=== PATIENT | female | born 1990 | race Caucasian/White ===

== ENCOUNTER 2016-09-20 19:48 | Inpatient (IN) | payer OTHER ==
[~2016-09-20] VITALS: Ht 160 cm; Wt 54.4 kg
[2016-09-22] MEDS ORDERED: DIAZEPAM 5 MG TABLET PO PRN (15:30)
[2016-09-22] MEDS ORDERED: DICYCLOMINE HCL 20 MG TABLET PO PRN (15:30)
[2016-09-22] MEDS ORDERED: ONDANSETRON 4 MG/2 ML VIAL IM PRN (15:30)
[2016-09-22] MEDS ORDERED: MIRALAX 17 GM POWD.PACK PO PRN (15:30)
[2016-09-22] MEDS ORDERED: MAGNESIUM HYDROXIDE 30 ML LIQUID UDC PO PRN (15:30)
[2016-09-22] MEDS ORDERED: diphenhydrAMINE 50 MG CAPSULE PO PRN (15:30)
[2016-09-22] MEDS ORDERED: MAG HYDROX/AL HYDROX/SIMETH 30 ML LIQUID UDC PO PRN (15:30)
[2016-09-22] MEDS ORDERED: THIAMINE HCL 200 MG/2 ML VIAL IM ONE ×2 (15:30→18:15)
[2016-09-22] MEDS ORDERED: ONDANSETRON ODT 4 MG TAB.RAPDIS SL PRN (15:30)
[2016-09-22] MEDS ORDERED: CLONIDINE HCL 0.1 MG TABLET PO PRN (15:30)
[2016-09-22] MEDS ORDERED: ACETAMINOPHEN 325 MG TABLET PO PRN (15:30)
[2016-09-22] MEDS ORDERED: LORAZEPAM 2 MG/1 ML VIAL IM PRN (15:30)
[2016-09-22] MEDS ORDERED: LOPERAMIDE HCL 2 MG CAPSULE PO PRN ×2 (15:30)
[2016-09-22] MEDS ORDERED: IBUPROFEN 600 MG TABLET PO PRN (15:30)
[2016-09-22] MEDS ORDERED: DIAZEPAM 10 MG TABLET PO PRN ×2 (15:30)
[2016-09-22] MEDS ORDERED: DEXTROSE 50% 50 ML DISP.SYRIN IV PRN (15:45)
[2016-09-22] MEDS ORDERED: INSULIN REGULAR, HUMAN 300 UNIT/3 ML VIAL SQ PRN (15:45)
[2016-09-22 16:04] VITALS: BP 129/66
--- NOTE | 2016-09-22 16:05 | NUR ---
INTAKE ASSESSMENT Received patient Aox4, stable, and ambulatory. Vital signs stable. patient reports NKA or no seizure history. Explained med handling and disposal of narcotics. Patient noted to be mildly intoxicated. Explained unit protocols and policies and patient verbalizes understanding. Will admit patient upon arrival to third floor.
--- NOTE | 2016-09-22 16:06 | NUR ---
ADMISSION NOTE Vital signs: BP 129/66 HR 107 TEMP 98.7 RR 17 O2 97% WEIGHT 120 LBS HEIGHT 5'3 PAIN 10/10 GENERALIZED ACHES NKA Patient is a 26 year old female admitted to [facility] on 09/22/16 at 1526 for opiate and benzo dependence. Patient reports occasional crack use about 1 time a week if that. Patient also reports occasional marijuana usage. Patient is placed under the care of Dr. Purcell. Patient denies suicidal or homicidal ideations at this time. Patient denies being hospitalized within the last 30 days. Patient denies chest pain or SOB. Patient reports history of Type 1 Diabetes, anxiety, and depression. Patient states managing her diabetes with Insulin Lantus. Upon assessment, patient has multiple abscesses to right hand and left arm. COWS 8 CIWA 11. NKA. AOX4 and able to answer necessary questions for admission. Patient is full code, regular diet. Patient denies seizure history. Patient denies having a PCP. Breathing is even and unlabored. Patient ambulates with steady gait. Patient reports multiple treatment history "too many to count." Patient reports living with friends. Patient smokes [address] Purcell has been notified and assessed patient and placed under observation. All needs have been met. Safety measures in place. Bed locked and in lowest position, call light within reach. Will monitor closely. SUBSTANCE ABUSE Heroin 3 g IV daily for 1 year at this rate, last used 2 gram 09/21/16 Benzos (Xanax or Klonopin) 8 mg daily for 7 years at this rate, last used 09/21/16 8 mg Crack (occasionally) 1 gram once a week, last used 09/19/16 1 gram Addendum: 09/22/16 at 1635 by JER ALEMAN RN photos of wounds taken and placed in chart
[2016-09-22] MEDS ORDERED: INSU100V7 SQ (16:35)
[2016-09-22] MEDS ORDERED: INSU100V28 (16:35)
[2016-09-22] MEDS ORDERED: IBUP-1957 PO (16:35)
[2016-09-22] MEDS ORDERED: QUET50TA PO (16:35)
[2016-09-22] MEDS ORDERED: INSU100C (16:35)
[2016-09-22] MEDS ORDERED: DICL500C PO (16:35)
[2016-09-22] MEDS ORDERED: IBUP-1955 PO (16:35)
[2016-09-22] MEDS ORDERED: BACL10TA PO (16:35)
[2016-09-22] MEDS ORDERED: LIDO10VI IJ (16:35)
[2016-09-22] MEDS ORDERED: SULF1TAB48 PO (16:35)
[2016-09-22] MEDS ORDERED: TRAZ-144 PO (16:35)
[2016-09-22] MEDS ORDERED: BUPR-51 PO (16:35)
[2016-09-22] MEDS: BLOOD SUGAR DIAGNOSTIC 1 EACH STRIP VI SCH ×2 (16:50→20:36)
[2016-09-22 17:46] LABS: *URINE HCG, QUAL NEGATIVE (NEGATIVE)
[2016-09-22 17:53] LABS: *AMPHETAMINE, URINE NEGATIVE (NEGATIVE); *BARBITURATE, URINE NEGATIVE (NEGATIVE); *CANNABINOID, URINE NEGATIVE (NEGATIVE); *COCCAINE, URINE POSITIVE (NEGATIVE); *OPIATE, URINE POSITIVE (NEGATIVE); *PHENCYCLIDINE SCREEN,URINE NEGATIVE (NEGATIVE)
--- NOTE | 2016-09-22 18:23 | NUR ---
END OF SHIFT NOTE Admitted patient this afternoon for opiate and benzo dependence. COWS 8 CIWA 11 upon admission. Patient sleeping with RR even and unlabored since admitting patient. Patient refused blood draw per lab. Patient refused Thiamine injection and reports wanting to just sleep since she has been lacking sleep lately. No medications administered. Blood sugar 100 upon admission. Patient ate some snacks during admission process. Patient presented labile, anxious, and fatigued. Vitals stable. Bed locked and in lowest position with call lugo within reach. Will endorse to night nurse.
--- NOTE | 2016-09-22 19:42 | NUR ---
MD COMMUNICATION Notified Dr. Purcell if he would like to add a parameter for Levemir, per MD order to hold Levemir if BG is less than 100 mg/dl. Nurse is made aware. Addendum: 09/22/16 at 1948 by MILENA LOPES RN Levemir order is 30 units HS, to hold if blood glucose is <100.
[2016-09-22 20:00] VITALS: BP 126/79
--- NOTE | 2016-09-22 20:00 | NUR ---
Start of Shift Pt is a 26 year old female admitted for Opiate/Benzo dependence. PMH: DM I, depression and anxiety. NKA, regular diet, fall/seizure precautions and full code. Upon assessment, pt is in bed sleeping. Pt presents with agitation, irritation - pt reports wanting to sleep and to be "left alone". Safety measures in place, will continue to monitor.
--- NOTE | 2016-09-22 20:36 | NUR ---
Accu-Chek - BS 176 Administered Levemir 30units as ordered with an additional Humulin R 3 units per sliding scale orders. Safety measures in place, will continue to monitor.
[2016-09-22] MEDS: INSULIN DETEMIR 300 UNIT/3 ML CARTRIDGE SQ SCH (20:44)
[2016-09-22] MEDS: INSULIN REGULAR, HUMAN 300 UNITS/3 ML VIAL SQ PRN (20:46)
--- NOTE | 2016-09-22 20:55 | NUR ---
Behavioral Patient refused blood draw. While explaining risk/benefits, pt is agitated, and states, "leave me alone, I don't want this!" Safety precautions in place, will continue to monitor.
[2016-09-22] MEDS ORDERED: INSULIN GLARGINE,HUM 300 UNITS/3 ML CARTRIDGE SQ SCH (21:00)
[2016-09-22] MEDS: CLINDAMYCIN HCL 300 MG CAPSULE PO SCH (21:23)
[2016-09-23] VITALS: BP 110/86
[2016-09-23] MEDS: KETOROLAC TROMETHAMINE 30 MG INJ IM PRN ×2 (00:49→10:41)
[2016-09-23] MEDS ORDERED: KETOROLAC TROMETHAMINE 30 MG INJ ONE (00:53)
--- NOTE | 2016-09-23 00:54 | NUR ---
PRN Administration Pt reports generalized body pain 10/10 and reports difficulty falling asleep. Toradol inj 30mg/ml PRN administered along with Trazodone 50mg PRN administered. Safety measures in place. Will continue to monitor.
[2016-09-23] MEDS ORDERED: TRAZODONE 50 MG TABLET PO PRN (01:00)
[2016-09-23] MEDS ORDERED: TRAZODONE 50 MG TABLET ONE (01:05)
--- NOTE | 2016-09-23 01:54 | NUR ---
PRN Reassessment Pt is sleeping, respirations even/unlabored. Safety measures in place, will continue to monitor.
[2016-09-23 04:00] VITALS: BP 104/58
--- NOTE | 2016-09-23 04:00 | NUR ---
Vital Signs BP 104/58, pulse 72, resp 16, SpO2 96%, temp 97.9, no pain 0/10 CIWA/COWS deferred to assess while pt is awake as ordered. Safety measures in place, will continue to monitor.
[2016-09-23] MEDS: CLINDAMYCIN HCL 300 MG CAPSULE PO SCH ×3 (06:51→22:00)
--- NOTE | 2016-09-23 07:00 | NUR ---
End of Shift Pt is a 26 year old female admitted for Opiate/Benzo dependence. PMH: DM I, depression and anxiety. NKA, regular diet, fall/seizure precautions and full code. During shift, pt presented with agitation, irritation - pt reports wanting to sleep and to be "left alone". Accu-Chek - BS 176 - Administered Levemir 30units as ordered with an additional Humulin R 3 units per sliding scale orders. Pt continues blood draw. While explaining risk/benefits, pt is agitated, yelling and states, "leave me alone!" Toradol inj 30mg/ml PRN administered along with Trazodone 50mg PRN for generalized body pain / and reports of difficulty falling asleep, effective. Pt slept for 4 hours, intake of 1032 ML PO, voids x4 and stool x1. Safety measures in place, call light within reach, side rails up x2, bed locked and in low position. Endorsed to day shift nurse.
--- NOTE | 2016-09-23 07:30 | NUR ---
START OF SHIFT Rcvd endorsement form ongoing nurse, client is in bed, she sound asleep, RR 14 even, non-labored. Client is a 26 year old female admitted for Opiate/Benzodiazepine withdrawal. NKA, regular diet, fall/seizure precautions and full code. Last Accu-Chek - BS 176 - Levemir 30units administered, sliding scale coverage Humulin R 3 units. No blood draw yet due to non-compliance. Toradol inj 30mg/ml PRN administered along with Trazodone 50mg PRN for generalized body pain 10/10 and reports of difficulty falling asleep, effective, she slept 4 hrs. Safety measures in place, call light within reach, side rails x 2 up/padded, bed locked and in lowest position.
[2016-09-23 08:30] VITALS: BP 108/69
[2016-09-23] MEDS: FOLIC ACID 1 MG TABLET PO SCH (08:34)
[2016-09-23] MEDS: DOCUSATE SODIUM 250 MG CAPSULE PO SCH (08:34)
[2016-09-23] MEDS: THIAMINE HCL 100 MG TABLET PO SCH (08:34)
[2016-09-23] MEDS: MULTIVITAMINS,THERAPEUTIC TABLET PO SCH (08:34)
[2016-09-23] MEDS: PHENOBARBITAL 60 MG TABLET PO SCH ×4 (08:34→21:00)
[2016-09-23] MEDS: BLOOD SUGAR DIAGNOSTIC 1 EACH STRIP VI SCH ×4 (08:40→21:36)
[2016-09-23] MEDS ORDERED: DIAZEPAM 5 MG TABLET PO PRN (08:45)
[2016-09-23] MEDS ORDERED: DIAZEPAM 10 MG TABLET PO PRN ×2 (08:45)
[2016-09-23] MEDS ORDERED: GABAPENTIN 300 MG CAPSULE PO SCH ×3 (09:00→21:00)
[2016-09-23] MEDS ORDERED: TUBERCULIN,PURIF.PROT.DERIV. 5 TU/0.1 ML TEST ID ONE (09:00)
--- NOTE | 2016-09-23 10:41 | NUR ---
PRN Toradol 30mg Inj. Client reports generalized pain 01/10, she stated "I'm in pain, is very achy, I am an addict, detox is very hard for me." PRN toradol 30mg Inj administered to R deltoid, client cried in pain because of the injection, she stated "Next time, I will rather just get Ativan every 1 or 2 hrs for pain." Educate client that Ativan medication is not given for pain, reinforcement needed.
--- NOTE | 2016-09-23 11:11 | NUR ---
Reassessment PRN Toradol 30mg Inj. Client is in bed, she sound asleep, RR 16, even, non-labored. Call light within reach. Will continue to monitor.
--- NOTE | 2016-09-23 11:56 | NUR ---
PRN Humulin R 12 Units per sliding scale BS 343. Client is not compliant with ordered diet, bottle of open juice at bedside, she added 5 packets of splenda to her coffee. Educate client on risk/benefits of eating habits, she stated "This blood sugar check is nothing, sometimes I get over 800." Reinforcement needed. Call light within reach.
[2016-09-23 12:22] VITALS: BP 119/80
[2016-09-23] MEDS ORDERED: BUPRENORPHINE HCL 2 MG TAB.SUBL SL PRN (12:45)
[2016-09-23] MEDS: BUPRENORPHINE HCL 2 MG TAB.SUBL SL SCH ×3 (12:58→21:00)
[2016-09-23] MEDS ORDERED: TETR-62 OP (13:40)
[2016-09-23] MEDS ORDERED: MUPI22OI2 TP (13:40)
[2016-09-23] MEDS: ACETAMINOPHEN ES 500 MG TABLET PO SCH ×2 (14:11→21:00)
[2016-09-23] MEDS: GABAPENTIN 300 MG CAPSULE PO SCH (14:11)
[2016-09-23] MEDS: LIDOCAINE 5% PATCH TD SCH (14:59)
[2016-09-23 15:30] LABS: BASOPHILS # (AUTO) 0.1 K/uL (0.0-8.0); BASOPHILS % (AUTO) 0.7 % (0.0-2.0); EOSINOPHILS # (AUTO) 0.2 K/uL (0.0-0.7); EOSINOPHILS % (AUTO) 1.4 % (0.0-7.0); HEMATOCRIT 40.1 % (37-47); HEMOGLOBIN 13.2 G/DL (12.0-16.0); LYMPHOCYTES # (AUTO) 2.8 K/UL (0.8-4.8); MEAN CORPUSCULAR HEMOGLOBIN 27.8 UUG (27.0-31.0); MEAN CORPUSCULAR HGB CONC 33 g/dL (32.0-37.0); MEAN CORPUSCULAR VOLUME 84.5 FL (81.0-99.0); MONOCYTES # (AUTO) 0.7 K/UL (0.1-1.30); MONOCYTES % (AUTO) 6.3 % (0.0-11.0); NEUTROPHILS # (AUTO) 7.6 K/UL (1.8-8.9); NEUTROPHILS % (AUTO) 66.6 % (38.5-71.5); PLATELET COUNT (AUTO) 288 K/UL (150-450); RED BLOOD CELL COUNT(AUTO) 4.74 MIL/UL (4.2-5.4); WHITE BLOOD COUNT (AUTO) 11.4 K/UL (4.0-11.2)
[2016-09-23 15:59] LABS: BILIRUBIN,TOTAL 0.5 mg/dL (0.2-1.0); CREATININE 0.9 mg/dL (0.6-1.3); MAGNESIUM 2.1 mg/dL (1.8-2.4); POTASSIUM 4.8 mmol/L (3.5-5.1); THYROID STIMULATING HORMONE 0.186 mIU/mL (0.358-3.740); TOTAL PROTEIN, SERUM 7.6 g/dL (6.4-8.2)
[2016-09-23 16:00] VITALS: BP 111/84
[2016-09-23 16:33] LABS: BASOPHILS % (MANUAL) 0 % (0-2); EOSINOPHILS % (MANUAL) 0 % (0-8); LYMPHOCYTES % (MANUAL) 16 % (20-40); MONOCYTES % (MANUAL) 8 % (2-10); NEUTROPHILS % (MANUAL) 66 % (42-75)
[2016-09-23] MEDS ORDERED: KETOROLAC TROMETHAMINE 30 MG INJ IVP PRN (17:30)
[2016-09-23] MEDS ORDERED: QUETIAPINE FUMARATE 25 MG TABLET PO SCH ×2 (18:00→21:00)
[2016-09-23] MEDS ORDERED: TRAZODONE 50 MG TABLET PO SCH (18:00)
--- NOTE | 2016-09-23 18:22 | NUR ---
REFUSING I&D Pt was assessed by nurse practitioner, Dr. Marino was contacted to come and do I&D, primary nurse reports client does not consent for treatment at this time. Pt education provided.
--- NOTE | 2016-09-23 19:00 | NUR ---
Client stated, "If you don't give me Ativan every hr or every two hrs for pain, I will leave AMA and kill myself." Primary educate client that Ativan is not for pain, she needs reinforcement. After talking with a client, she denied any SI/HI. Charge nurse and Dr. Purcell and Dr. Mcpherson made aware. Client is in room, watching TV. Call light within reach.
--- NOTE | 2016-09-23 19:15 | NUR ---
Start of Shift Note: Patient is a 26 y/o female admitted on 09/22/16 for Opiate and Benzo dependence. Patient has medical history of Diabetes Type I, Anxiety & Depression. Patient is on a regular diet with no known food and drug allergies. Full Code status. Patient is started on a 6-day Phenobarbital taper and 5-day Subutex taper. Last COWS 4 CIWA 6. Pt was given PRN Toradol during day shift. Pt noted with a blood sugar of 343mg/dl @ 3pm d/t non-compliance with her diet. Pt is in bed with eyes close. Patient is asleep but arousable to touch. Patient refuses to be assessed. Patient lying in bed with no s/s of distress. No shortness of breath noted. No episode of vomiting noted. Skin warm and dry to touch. No facial grimacing noted. No sweating or tremors noted. Patient kept comfortable. Vitals WNL. Safety precautions are in place. Bed locked in lowest position. Both side rails up. Call light within pt's reach. Will continue to closely monitor patient.
--- NOTE | 2016-09-23 19:28 | NUR ---
CRISIS TEAM NOTIFIED Pt made a comment to primary nurse earlier and stated "If you don't give me Ativan every hr or every two hrs for pain, I will leave AMA and kill myself." Primary nurse explained to patient that Ativan is for anxiety and not for pain. Primary nurse asked the patient if she has thoughts of hurting herself or anyone else, pt denies SI/HI. Medical MD and psychiatrist aware of comment and stated to notify crisis team. Nina (crisis team laminate floor installer) notified of client's comment, pt is asleep at this time. Nina stated to notify her if pt wakes up and wants to leave AMA.
--- NOTE | 2016-09-23 19:30 | NUR ---
END OF SHIFT Client is in bed, watching TV. Phenobarbital/Subutex taper effective in alleviating withdrawal sx such as generalized body aches, stomach cramps, restless legs, Safety measures rendered, she denies SI/HI. Call light within reach. All needs met.
[2016-09-23 20:00] VITALS: BP 105/74
--- NOTE | 2016-09-23 21:00 | NUR ---
Patient's scheduled medication at 2100 was held due to sedation. Patient shows no s/s of distress. No shortness of breath noted. Vitals WNL. Charge Nurse made aware. Will continue to closely monitor patient.
[2016-09-23] MEDS: INSULIN REGULAR, HUMAN 300 UNITS/3 ML VIAL SQ PRN (21:39)
[2016-09-23] MEDS: INSULIN DETEMIR 300 UNIT/3 ML CARTRIDGE SQ SCH (21:40)
--- NOTE | 2016-09-24 | NUR ---
Vitals/Cows/Ciwa deferred Patient refused vitals at this time. Unable to assess COWS & CIWA. Patient asleep in bed with no s/s of distress. No shortness of breath noted. Respiration even & unlabored. Safety precautions are in place. Will continue to monitor patient.
[2016-09-24 04:00] VITALS: BP 121/82
[2016-09-24] MEDS: CLINDAMYCIN HCL 300 MG CAPSULE PO SCH ×2 (06:25→14:00)
[2016-09-24 06:42] VITALS: BP 116/81
--- NOTE | 2016-09-24 06:45 | NUR ---
Blood Eifli=905es/dl per patient's request.
--- NOTE | 2016-09-24 07:36 | NUR ---
End of Shift Note: Patient is a 26 y/o female admitted on 09/22/16 for Opiate and Benzo dependence. Patient has medical history of Diabetes Type I, Anxiety & Depression. Patient is on a regular diet with no known food and drug allergies. Full Code status. Patient is started on a 6-day Phenobarbital taper and 5-day Subutex taper. Patient's medications at 2100 were held d/t sedation. Patient has been sleeping most of the night. No PRN medications were given during my shift. Last COWS 7 CIWA 8. Patient remained stable and Vitals remains WNL. Patient was able to sleep for a total of 10 hours. Pt consumed 1985ml of fluids. Voided 4x with no bowel movement. All needs attended & met. Safety precautions are in place. Will endorse pt to day shift nurse.
[2016-09-24 08:00] VITALS: BP 115/72
[2016-09-24] MEDS: BLOOD SUGAR DIAGNOSTIC 1 EACH STRIP VI SCH ×4 (08:12→20:14)
--- NOTE | 2016-09-24 08:13 | NUR ---
START OF SHIFT: RECEIVED PT A/O X 4. SHE PRESENTS WITH IRRITABLE MOOD AND CONGRUENT AFFECT. SHE IS TEARFUL AT TIMES DURING ASSESSMENT. SHE C/O BODY ACHES,CHILLS,SWEATS,IRRITABILITY AND ANXIETY. SHE BECOMES EASILY AGITATED. OFFERED SUPPORT. COWS 10 CIWA 6. PHENOBARB/SUBUTEX TAPER IN PROGRESS. ENCOURAGED INCREASED FLUIDS TO ASSIST IN FACILITATING DETOX PROCESS. WILL CONTINUE TO MONITOR AND OFFER SUPPORT. Addendum: 09/24/16 at 1755 by MARY ZULUAGA RN PRN CLONIDINE AND PRN BENTYL GIVEN FOR S/S OF W/D.
[2016-09-24] MEDS: BUPRENORPHINE HCL 2 MG TAB.SUBL SL SCH ×3 (08:33→15:00)
[2016-09-24] MEDS: PHENOBARBITAL 60 MG TABLET PO SCH ×2 (08:34→15:00)
[2016-09-24] MEDS: DOCUSATE SODIUM 250 MG CAPSULE PO SCH (08:34)
[2016-09-24] MEDS: GABAPENTIN 300 MG CAPSULE PO SCH ×2 (08:34→15:00)
[2016-09-24] MEDS: MULTIVITAMINS,THERAPEUTIC TABLET PO SCH (08:35)
[2016-09-24] MEDS: THIAMINE HCL 100 MG TABLET PO SCH (08:35)
[2016-09-24] MEDS: ACETAMINOPHEN ES 500 MG TABLET PO SCH ×2 (08:35→15:00)
[2016-09-24] MEDS: FOLIC ACID 1 MG TABLET PO SCH (08:35)
[2016-09-24] MEDS: LIDOCAINE 5% PATCH TD SCH (08:38)
--- NOTE | 2016-09-24 09:15 | NUR ---
PT STATES THE PRN MEDS WERE EFFECTIVE. PT THREATENS TO LEAVE AMA IF SHE DOES NOT GET HER MAKE UP. OFFERED SUPPORT AND INVOLVED INTERDISCIPLINARY TEAM.
[2016-09-24 12:00] VITALS: BP 157/92
[2016-09-24 14:11] LABS: HEPATITIS B SURFACE AG Negative (Negative)
[2016-09-24 16:00] VITALS: BP 90/60
--- NOTE | 2016-09-24 17:00 | NUR ---
1600 CIWA AND COWS DEFERRED. PT IS ASLEEP.
--- NOTE | 2016-09-24 17:21 | NUR ---
1630 ACCU CHECK REFUSED. PT YELLED LEAVE ME ALONE. ALLOWING PT TO REST.
--- NOTE | 2016-09-24 19:15 | NUR ---
START OF SHIFT Received 26 year old female patient admitted on 09/22/16 for Opiate and Benzodiazepine dependency. Pt is full code with NKA. She reports a PMHx of diabetes type 1, depression and anxiety. She reports using heroin 3 gram IV daily for 5 years. Last dose 2 grams on 09/21/16. Xanax/Klonopin 8 mg PO daily for 13 years. Last dose was 8 mg on 09/21/16. And crack occasionally. Last dose was 1 gram on 09/19/16. Pt placed on 6 day Phenobarbital and 5 day Subutex taper. Per endorsement, pt noted with multiple track nieves to bilateral arms. And Abscess x2 on left upper arm and right hand. Per endorsement, pt refused Accucheck. Pt is alert and oriented x4, breathing is even and unlabored. Safety measures in place. Will continue to monitor.
--- NOTE | 2016-09-24 19:27 | NUR ---
END OF SHIFT: PT CONTINUES O PHENOBARBITAL/SUBUTEX TAPER. SHE C/O SWEATS,CHILLS,BOY ACHES,ANXIETY AND RESTLESSNESS EARLY IN SHIFT. PRN CLONIDINE AND BETYL GIVEN AND EFFECTIVE. SHE THREATENS TO AMA WHEN SHE DOESN'T GET HER WAY. LAST BS 106 BEFORE LUNCH. SHE REFUSED ACCU CHECK AND DINNER AND SLEPT THROUGH AFTERNOON MEDS . OFFERED SUPPORT. WILL PASS SHIFT REPORT TO ONCOMING NIGHT NURSE.
[2016-09-24] MEDS: INSULIN REGULAR, HUMAN 300 UNITS/3 ML VIAL SQ PRN (20:08)
[2016-09-24] MEDS: INSULIN DETEMIR 300 UNIT/3 ML CARTRIDGE SQ SCH (20:10)
--- NOTE | 2016-09-24 20:15 | NUR ---
YOGI BS:242. Pt received 4 units of Humulin per sliding scale. Will monitor.
--- NOTE | 2016-09-24 21:25 | NUR ---
AMA NOTE Pt stated that she wanted to leave AMA d/t pt did not want to continue the treatment. Pt educated about the risks and consequences of leaving AMA, pt verbalized understanding but still requested to leave. Multiple staff members spoke with pt without any success. Pt refused VS. Pt denies any suicidal/homicidal ideations, skin intact, Dr. Purcell notified. Pt was given a list of community resources in case she is in need of help. All belongings returned to pt. Pt left the facility on 09/24/16 at 2125.
[2016-09-25] MEDS ORDERED: PHENOBARBITAL 60 MG TABLET PO SCH (09:00)
[2016-09-25] MEDS ORDERED: BUPRENORPHINE HCL 2 MG TAB.SUBL SL SCH ×2 (09:00→15:00)
[2016-09-26] MEDS ORDERED: PHENOBARBITAL 60 MG TABLET PO SCH (09:00)
[2016-09-26] MEDS ORDERED: BUPRENORPHINE HCL 2 MG TAB.SUBL SL SCH (09:00)
[2016-09-27] MEDS ORDERED: PHENOBARBITAL 60 MG TABLET PO SCH (09:00)
[2016-09-27] MEDS ORDERED: BUPRENORPHINE HCL 2 MG TAB.SUBL SL SCH (09:00)
[2016-09-28] MEDS ORDERED: PHENOBARBITAL 60 MG TABLET PO SCH (09:00)
== END 2016-09-24 21:25 | disposition left against medical advice (07) | DRG 894 ==
LOC: SRC 09-22 14:01
PROVIDERS: ADMIT Internal Medicine; ATTEND Internal Medicine
PROC: HZ2ZZZZ Detoxification Services for Substance Abuse Treatment (ICD-10-PCS; principal; 2016-09-22)
PROC: HZ31ZZZ Individual Counseling for Substance Abuse Treatment, Behavioral (ICD-10-PCS; 2016-09-24)
DX: F11.23 Opioid dependence with withdrawal (principal); L03.114 Cellulitis of left upper limb; L03.113 Cellulitis of right upper limb; L02.413 Cutaneous abscess of right upper limb; Z59.0 Homelessness; F17.210 Nicotine dependence, cigarettes, uncomplicated; E10.42 Type 1 diabetes mellitus with diabetic polyneuropathy; Z79.4 Long term (current) use of insulin; Z81.8 Family history of other mental and behavioral disorders; Z81.3 Family history of other psychoactive substance abuse and dependence; F39 Unspecified mood [affective] disorder; B19.20 Unspecified viral hepatitis C without hepatic coma; Z79.899 Other long term (current) drug therapy
CPT/HCPCS: 36415; 70030-TC; 71010; 80307; 80346; 80353; 80361; 83690; 83735; 84443; 84703; 85025; 86592; 86705; 86803; 87340; 87806; A4663; J1815; J1885; J8499